=== PATIENT | female | born 1955 | race Caucasian/White ===

== ENCOUNTER → 2017-11-04 | Outpatient (CLI) | payer BC ==
[~2017-11-04] MED LIST: ALPR1 PO; ATOR40TA PO; Aspir-Low81 MG PO; BACID; BIEST; CALCAVITDA; CLIN300 PO; DIVA500EC; DOCU100 PO; Flagyl500 MG PO; Frova2.5 MG; LEVO750 PO; METF500; METO50ER PO; OXYACE5T PO; OXYC5 PO; PROGESTERONE; RANI150; Roxicodone5 MG PO; VIT D; VITAMIN D-32000 UNI1; VITAMIN D10000 UNIT PO; Zofran8 MG PO; [UNRECOGNIZED DRUG - OTHER]; [UNRECOGNIZED DRUG - REMARK]
[2017-11-04 15:20] LABS: BASOPHILS ABSOLUTE AUTO 0.03 K/mm3 (0.00-0.23); BASOPHILS PERCENT AUTO 1 % (0-2); EOSINOPHILS ABSOLUTE AUTO 0.09 K/mm3 (0.00-0.68); EOSINOPHILS PERCENT AUTO 1 % (0-6); Hematocrit 43.9 % (33.0-51.0); Hemoglobin 14.8 g/dL (11.5-16.0); IMMATURE GRAN ABSOLUTE AUTO 0.02 K/mm3 (0.00-0.10); IMMATURE GRAN PERCENT AUTO 0 % (0-1); LYMPHOCYTES ABSOLUTE AUTO 2.24 K/mm3 (0.84-5.20); LYMPHOCYTES PERCENT AUTO 36 % (21-46); MONOCYTES ABSOLUTE AUTO 0.47 K/mm3 (0.16-1.47); MONOCYTES PERCENT AUTO 8 % (4-13); Mean Corpuscular HGB Conc 33.7 g/dL (31.5-36.5); Mean Corpuscular Volume 95 fL (80-100); Mean Platelet Volume 10.8 fL (9.1-12.4); NEUTROPHILS ABSOLUTE AUTO 3.45 K/mm3 (1.96-9.15); NEUTROPHILS PERCENT AUTO 55 % (41-73); Platelet Count 225 K/mm3 (150-400); RDW Coefficient Variation 12.9 % (11.7-14.2); RDW Standard Deviation 44.1 fL (35.1-46.3); Red Blood Cell Count 4.62 M/mm3 (3.80-5.20)
[2017-11-04 15:29] LABS: Albumin, Blood 3.7 g/dL (3.4-5.0); Bilirubin, Total 0.6 mg/dL (0.1-1.0); Bun/Creatinine Ratio 18.6 (12.0-20.0); Calcium, Blood 9.1 mg/dL (8.5-10.1); Creatinine, Blood 0.97 mg/dL (0.40-1.00); Globulin, Blood 3.7 g/dL (2.2-4.0); Potassium, Blood 4.3 mmol/L (3.5-5.5); Total Protein, Blood 7.4 g/dL (6.4-8.2)
== END ==
LOC: LAB EV 15:15 → LAB SHORT 15:15
PROVIDERS: Physician Assistant
DX: R10.9 Unspecified abdominal pain (principal)
CPT/HCPCS: 80053; 83690; 85025

== ENCOUNTER → 2018-10-30 | Outpatient (CLI) | payer BC ==
[2018-10-31 15:06] LABS: HPV 16 Negative (Negative); HPV 18 Negative (Negative); HPV OTHER HR TYPES Negative (Negative)
== END | disposition home or self-care (01) ==
LOC: LAB SHORT 12:48 → LAB 12:48
PROVIDERS: Obstetrics & Gynecology Gynecology
DX: Z12.72 Encounter for screening for malignant neoplasm of vagina (principal)
CPT/HCPCS: 87624; G0123

== ENCOUNTER → 2019-02-01 | Outpatient (CLI) | payer BC ==
[~2019-02-01] MED LIST changes: +Esgic Tablet1 EACH PO; +HYOS0.375T PO; +Nitroglycerin0.4 MG SL
[2019-02-06 16:06] LABS: M-SPIKE, % Not Observed % (Not Observed); PROTEIN,TOTAL,URINE <4.0 mg/dL (Not Estab.)
== END | disposition home or self-care (01) ==
LOC: LAB SHORT 03:30 → OLS 03:30
PROVIDERS: Internal Medicine
DX: Z00.01 Encounter for general adult medical examination with abnormal findings (principal)
CPT/HCPCS: 81050; 84166

== ENCOUNTER 2019-03-25 11:40 | Day surgery (SDC) | payer BC ==
[~2019-03-25] VITALS: Ht 162.6 cm; Wt 101.0 kg
== END 2019-03-25 14:13 | disposition home or self-care (01) ==
LOC: ORSCSDS 11:40
PROVIDERS: Internal Medicine Gastroenterology
PROC: 0D757ZZ Dilation of Esophagus, Via Natural or Artificial Opening (ICD-10-PCS; principal; 2019-03-25 13:30)
PROC: 0DB58ZX Excision of Esophagus, Via Natural or Artificial Opening Endoscopic, Diagnostic (ICD-10-PCS; principal; 2019-03-25 13:30)
DX: R13.14 Dysphagia, pharyngoesophageal phase (principal); R07.9 Chest pain, unspecified; E66.9 Obesity, unspecified; Z68.36 Body mass index [BMI] 36.0-36.9, adult; Z79.82 Long term (current) use of aspirin; Z79.899 Other long term (current) drug therapy
CPT/HCPCS: 88305; J2704; J7120

== ENCOUNTER → 2019-04-02 | Outpatient (CLI) | payer BC | END | disposition home or self-care (01) | LOC: LAB SHORT 05:30 → OLS 05:30 → LAB FUT 03-26 17:35 | DX: R61 Generalized hyperhidrosis (principal) | CPT/HCPCS: 81050 ==

== ENCOUNTER → 2021-12-19 | Outpatient (CLI) | payer MEDICARE, OTHER ==
[2021-12-20 10:48] LABS: Stool Occult Bld Immuno 1 Negative (NEGATIVE)
== END | disposition home or self-care (01) ==
LOC: LAB 08:47 → LAB SHORT 08:47
PROVIDERS: Internal Medicine Gastroenterology
DX: Z12.11 Encounter for screening for malignant neoplasm of colon (principal)
CPT/HCPCS: 82274

== ENCOUNTER → 2021-12-22 | Outpatient (CLI) | payer MEDICARE, OTHER ==
[2021-12-22 13:56] LABS: Stool Occult Bld Immuno 1 Negative (NEGATIVE)
== END | disposition home or self-care (01) ==
LOC: LAB SHORT 09:15 → LAB 09:15 → LAB FUT 12-16 09:00
PROVIDERS: Internal Medicine Gastroenterology
DX: Z12.11 Encounter for screening for malignant neoplasm of colon (principal)
CPT/HCPCS: G0328

== ENCOUNTER → 2022-11-11 | Outpatient (CLI) | payer MEDICARE, OTHER ==
[2022-11-11 11:32] LABS: Protein, Urine Quantitative 14.7 mg/dL (0.0-11.9)
[2022-11-15 08:14] LABS: DOPAMINE, URINE 197 ug/L (Undefined)
[2022-11-15 14:09] LABS: 5-HIAA, URINE 5.4 mg/L (Undefined); CREATININE, URINE 74.6 mg/dL (Not Estab.)
[2022-11-19 00:07] LABS: METANEPHRINE, UR 64 ug/L (Undefined)
== END | disposition home or self-care (01) ==
LOC: LAB 09:34 → LAB SHORT 09:34
PROVIDERS: Internal Medicine
DX: L74.9 Eccrine sweat disorder, unspecified (principal)
CPT/HCPCS: 82384; 82570; 83497; 84156

== ENCOUNTER 2023-11-17 20:30 | Emergency (ER) | payer MEDICARE, OTHER ==
[~2023-11-17] VITALS: Ht 162.6 cm; Wt 108.9 kg
[~2023-11-17 20:30] MED LIST changes: +FLUTICASONE-SA1 EAC8 INH; +Nitroglycerin1 EAC3 TOP; +VITAMIN D310 MC4 PO; +Voltaren100 GM TOP
[2023-11-17 20:37] VITALS: BP 104/79
== END 2023-11-17 21:40 | disposition home or self-care (01) ==
LOC: ER 20:30
DX: S01.01XA Laceration without foreign body of scalp, initial encounter (principal); M25.561 Pain in right knee; W18.30XA Fall on same level, unspecified, initial encounter; Z88.8 Allergy status to other drugs, medicaments and biological substances; Z88.2 Allergy status to sulfonamides; Z88.5 Allergy status to narcotic agent; Z88.1 Allergy status to other antibiotic agents; Z91.040 Latex allergy status; Z79.899 Other long term (current) drug therapy; Z79.82 Long term (current) use of aspirin
CPT/HCPCS: 12002; 73562-RT; 99284-25

== ENCOUNTER 2023-11-28 07:07 | Day surgery (SDC) | payer MEDICARE, OTHER ==
[2023-11-28] VITALS (15 sets, daily range): BP systolic 97–133; BP diastolic 51–79
[~2023-11-28] VITALS: Ht 162.6 cm; Wt 97.7 kg
[~2023-11-28 07:07] MED LIST changes: +ASPI81CH PO; -Aspir-Low81 MG PO
[2023-11-28] MEDS ORDERED: Lactated Ringer's 1,000 ML IV SCH ×2 (08:45→09:50)
[2023-11-28] MEDS ORDERED: Acetaminophen 500 MG Tab PO SCH ×2 (08:45→16:00)
[2023-11-28] MEDS ORDERED: CeFAZolin Sodium 2,000 MG in NS 100 ML IV SCH ×2 (08:45→19:00)
[2023-11-28] MEDS ORDERED: Ropivacaine 0.5% HCl/Pf 123.125 MG,EPINEPHrine HCL 0.25 MG,Ketorolac Tromethamine 15 MG... INFIL SCH (08:45)
[2023-11-28] MEDS ORDERED: Chlorhexidine Mouth Care 15 ML UDC MT SCH (08:45)
[2023-11-28] MEDS ORDERED: Tranexamic Acid 100 ML IV SCH (08:46)
[2023-11-28] MEDS ORDERED: Mometasone/Formoterol MDI 100/5 mcg 13 GM INH SCH (09:35)
--- NOTE | 2023-11-28 09:36 | NUR ---
Ambulatory in Day Surgery. History, Chart, Medications and Allergies reviewed before start of procedure. Lungs clear T/O to Auscultation. Patient confirms NPO status and agrees with scheduled surgery. Pre-Op teaching done. Pt verbalizes understanding. PT BELONGINGS PLACED UNDERNEATH GURNEY FOR SAFEKEEPING. PT GLASSES TAKEN TO PACU FOR SAFEKEEPING.
[2023-11-28] MEDS ORDERED: Bisacodyl 10 MG Supp PR PRN (09:45)
[2023-11-28] MEDS ORDERED: Promethazine HCl 25 MG Tab PO PRN (09:45)
[2023-11-28] MEDS ORDERED: DiphenhydrAMINE HCL 25 MG Cap PO PRN (09:45)
[2023-11-28] MEDS ORDERED: Metoclopramide HCl 5MG / ML 2ML Vial IV PRN (09:50)
[2023-11-28] MEDS ORDERED: HYDROmorphone HCl/Pf 1MG SYR IV PRN (09:50)
[2023-11-28] MEDS ORDERED: Magnesium Hydroxide Conc 10 ML UDC PO PRN (09:50)
[2023-11-28] MEDS ORDERED: OxyCODONE HCL 5 MG TAB PO PRN ×2 (09:55)
[2023-11-28] MEDS ORDERED: Ondansetron HCl 2 MG / ML 2ML Vial IV PRN (09:55)
[2023-11-28] MEDS ORDERED: OxyCODONE HCL 10 MG TABCR PO SCH (10:05)
--- NOTE | 2023-11-28 10:06 | NUR ---
DR YEAGER AT BEDSIDE TO CONSULT PT FOR SURGERY. PER DR YEAGER, OKAY TO GIVE OXYCONTIN DESPITE PT ALLERGY TO HYDROCODONE. PT ALSO STATES SHE HAS TAKEN OXYCONTIN IN THE PAST AND HAS TOLERATED IT WELL.
[2023-11-28] MEDS ORDERED: Dexamethasone Sod Phos 10 MG/ML 1ML VIAL ONE (11:13)
[2023-11-28] MEDS ORDERED: Ondansetron HCl 2 MG / ML 2ML Vial ONE (11:13)
[2023-11-28] MEDS ORDERED: propofoL 20 ML IV ONE ×2 (11:13→11:51)
[2023-11-28] MEDS ORDERED: Midazolam HCl 1MG / ML 2ML Vial ONE (11:13)
[2023-11-28] MEDS ORDERED: ePHEDrine Sulfate 50 MG/ML 1ML Injection ONE (11:27)
--- NOTE | 2023-11-28 17:31 | NUR ---
SHIFT SUMMARY PT A&OX4, VSS/RA, MARLENE PO, VOIDING/BSC, AMB 1 PP MOD FWW/GB, UP TO CHAIR, PAIN MANAGED, IVF/ABX PER EMAR. WILL REPORT TO ONCOMING NOC KALYAN.
[2023-11-28] MEDS ORDERED: Ketorolac Tromethamine 15mg Vial IV SCH (18:00)
[2023-11-28] MEDS ORDERED: Docusate Sodium 100 MG Cap PO SCH (21:00)
[2023-11-29 05:00] VITALS: BP 117/66
--- NOTE | 2023-11-29 05:32 | NUR ---
SHIFT SUMMARY PT POD O RIGHT TOTAL KNEE. PT HAS RESTED T/O THE SHIFT. PT DID HAVE SOME NAUSEA WITH EMESIS AT THE BEGINNING OF THE SHIFT THAT WAS RELIEVED WITH MEDS PER EMAR. PT HAS NOT HAD ANY NAUSEA SINCE AND HAS BEEN ABLE TO TOLERATE PO INTAKE. PAIN CONTROLLED WITH MEDS PER EMAR. PT HAS BEEN UP AND AMBULATING TO THE BATHROOM, AND VOIDING. DRESSING C/D/I. POST OP VITALS STABLE. PLAN IS FOR DISCHARGE TODAY.
[2023-11-29 06:14] LABS: BASOPHILS ABSOLUTE AUTO 0.01 K/mm3 (0.00-0.23); BASOPHILS PERCENT AUTO 0 % (0-2); EOSINOPHILS PERCENT AUTO 0 % (0-6); Hematocrit 36.1 % (33.0-51.0); Hemoglobin 11.8 g/dL (11.5-16.0); IMMATURE GRAN ABSOLUTE AUTO 0.03 K/mm3 (0.00-0.10); IMMATURE GRAN PERCENT AUTO 0 % (0-1); LYMPHOCYTES ABSOLUTE AUTO 1.02 K/mm3 (0.84-5.20); LYMPHOCYTES PERCENT AUTO 10 % (21-46); MONOCYTES ABSOLUTE AUTO 0.61 K/mm3 (0.16-1.47); MONOCYTES PERCENT AUTO 6 % (4-13); Mean Corpuscular HGB 31.6 pg (26.0-34.0); Mean Corpuscular HGB Conc 32.7 g/dL (31.5-36.5); Mean Corpuscular Volume 97 fL (80-100); Mean Platelet Volume 11.4 fL (9.1-12.4); NEUTROPHILS ABSOLUTE AUTO 8.65 K/mm3 (1.96-9.15); NEUTROPHILS PERCENT AUTO 84 % (41-73); Platelet Count 174 K/mm3 (150-400); RDW Coefficient Variation 12.7 % (11.7-14.2); RDW Standard Deviation 45.1 fL (35.1-46.3); Red Blood Cell Count 3.74 M/mm3 (3.80-5.20); White Blood Cell Count 10.32 K/mm3 (4.00-11.30)
[2023-11-29 06:44] LABS: Bun/Creatinine Ratio 18.6 (12.0-20.0); Calcium, Blood 8.8 mg/dL (8.5-10.1); Creatinine, Blood 0.81 mg/dL (0.40-1.00); Potassium, Blood 4.6 mmol/L (3.5-5.5)
[2023-11-29 07:35] VITALS: BP 110/65
[2023-11-29] MEDS ORDERED: TraMADol HCl 50 MG Tab PO PRN (07:50)
[2023-11-29] MEDS ORDERED: Aspirin 81 MG Chew PO SCH (09:00)
[2023-11-29] MEDS ORDERED: Cholecalciferol 1000 Unit Tablet (=25MCG) PO SCH (09:00)
[2023-11-29] MEDS ORDERED: Atorvastatin 40 MG Tab PO SCH (09:00)
--- NOTE | 2023-11-29 12:03 | NUR ---
DISCHARGE POD1 R TKA AQUACEL CDI TEDS POLAR LISHA. A&OX4, MARLENE PO, VOIDING, AMB FWW, PAIN MANAGED, IV DC'D. DC INS PROVIDED. PT REP UNDERSTANDING THOSE INSTRUCTIONS INCLUDING ASA BID/TEDS, PAIN MGMT W.ULTRAM, SHORT FREQU AMB W/FWW, POLAR LISHA AND ELEVATE AT REST, OUTPT PT, DRESSING CHANGES. 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
== END 2023-11-29 11:00 | disposition home or self-care (01) ==
LOC: ORSCMMR 07:07 → ORD 10:00 → SURS 13:36 → ORSCMMR 11-29 11:00
PROVIDERS: Orthopaedic Surgery
PROC: 0SRC0JA Replacement of Right Knee Joint with Synthetic Substitute, Uncemented, Open Approach (ICD-10-PCS; principal; 2023-11-28 10:00)
DX: M17.11 Unilateral primary osteoarthritis, right knee (principal); I10 Essential (primary) hypertension; G47.33 Obstructive sleep apnea (adult) (pediatric); E11.9 Type 2 diabetes mellitus without complications; Z79.899 Other long term (current) drug therapy; E66.9 Obesity, unspecified; Z68.37 Body mass index [BMI] 37.0-37.9, adult; Z79.82 Long term (current) use of aspirin
CPT/HCPCS: 36415; 73560-RT; 80048; 82947; 85025; 94640; 94664; 94760; 97110; 97116; 97162; 97530; A9270; C1776; J0171; J0690; J0735; J1100; J1885; J2250; J2405; J2704; J2795; J7120

== ENCOUNTER 2024-01-23 05:36 | Day surgery (SDC) | payer MEDICARE, OTHER ==
[~2024-01-23] VITALS: Ht 162.6 cm; Wt 91.7 kg
[2024-01-23] MEDS ORDERED: Lactated Ringer's 1,000 ML IV SCH (06:10)
[2024-01-23 06:29] VITALS: BP 131/78
[2024-01-23] MEDS ORDERED: TRAM50 PO (06:35)
[2024-01-23] MEDS ORDERED: ACET500 PO (06:35)
[2024-01-23] MEDS ORDERED: propofoL 20 ML IV ONE (06:59)
[2024-01-23] MEDS ORDERED: FentaNYL Citrate 50 MCG/ML 2 ML Injection ONE (06:59)
--- NOTE | 2024-01-23 06:59 | NUR ---
Ambulatory in Day Surgery W/ CANE Patient confirms NPO status and agrees with scheduled surgery. Pre-Op teaching done. Pt verbalizes understanding. History, Chart, Medications and Allergies reviewed before start of procedure.Patient States Post-Procedure ride home has been arranged.
[2024-01-23] MEDS ORDERED: Ketorolac Tromethamine 30mg Vial ONE (07:24)
[2024-01-23] MEDS ORDERED: Dexamethasone Sod Phos 10 MG/ML 1ML VIAL ONE (07:24)
[2024-01-23] MEDS ORDERED: Ondansetron HCl 2 MG / ML 2ML Vial ONE (07:24)
[2024-01-23 07:45] VITALS: BP 96/66
[2024-01-23 07:55] VITALS: BP 101/69
[2024-01-23] MEDS ORDERED: Ondansetron HCl 2 MG / ML 2ML Vial IV ONE (08:05)
[2024-01-23] MEDS ORDERED: OxyCODONE 5 mg/Acetamin 325 mg TABLET PO PRN (08:05)
[2024-01-23] MEDS ORDERED: OxyCODONE 5 mg/Acetamin 325 mg TABLET PO ONE (08:05)
[2024-01-23 08:15] VITALS: BP 112/67
[2024-01-23 08:30] VITALS: BP 94/74
--- NOTE | 2024-01-23 08:41 | NUR ---
Discharge instructions reviewed with patient. Patient verbalizes understanding. Copy given to patient to take home.
[2024-01-23 08:42] VITALS: BP 102/62
--- NOTE | 2024-01-23 08:51 | NUR ---
Discharged via wheelchair to private car for ride home.
== END 2024-01-23 08:56 | disposition home or self-care (01) ==
LOC: ORSCMMR 05:36 → ORD 07:30 → ORSCMMR 07:30
PROVIDERS: Orthopaedic Surgery
PROC: 0SSCXZZ Reposition Right Knee Joint, External Approach (ICD-10-PCS; principal; 2024-01-23 07:30)
DX: M24.661 Ankylosis, right knee (principal); Z96.651 Presence of right artificial knee joint; G47.33 Obstructive sleep apnea (adult) (pediatric); I10 Essential (primary) hypertension; E11.9 Type 2 diabetes mellitus without complications; E66.9 Obesity, unspecified; Z68.34 Body mass index [BMI] 34.0-34.9, adult; Z79.82 Long term (current) use of aspirin; Z79.899 Other long term (current) drug therapy
CPT/HCPCS: 82947; A9270; J1100; J1885; J2405; J2704; J3010; J7120

== ENCOUNTER 2024-07-09 12:42 | Emergency (ER) | payer MEDICARE, OTHER ==
[~2024-07-09] VITALS: Ht 162.6 cm; Wt 93.0 kg
[~2024-07-09 12:42] MED LIST changes: +ACET500 PO; +TRAM50 PO
[2024-07-09 13:08] VITALS: BP 141/82
[2024-07-09 13:46] LABS: CORONAVIRUS COVID-19 AG Negative (NEGATIVE); INFLUENZA A AG Negative (NEGATIVE); INFLUENZA B AG Negative (NEGATIVE)
== END 2024-07-09 15:12 | disposition home or self-care (01) ==
LOC: ER 12:42
PROVIDERS: Student in an Organized Health Care Education/Training Program
DX: J06.9 Acute upper respiratory infection, unspecified (principal); Z88.8 Allergy status to other drugs, medicaments and biological substances; Z88.2 Allergy status to sulfonamides; Z88.1 Allergy status to other antibiotic agents; Z91.040 Latex allergy status; Z88.5 Allergy status to narcotic agent; Z91.018 Allergy to other foods; Z79.899 Other long term (current) drug therapy; Z79.82 Long term (current) use of aspirin
CPT/HCPCS: 71046; 87081; 87428-QW; 87430; 99283-25

== ENCOUNTER 2024-12-16 10:39 | Day surgery (SDC) | payer MEDICARE, OTHER ==
[~2024-12-16] VITALS: Ht 165.1 cm; Wt 98.2 kg
[~2024-12-16 10:39] MED LIST changes: +Lidocaine HCl 2% 10 ML SDA ONE
[2024-12-16] MEDS ORDERED: NS 100 ML IV ONE (10:53)
[2024-12-16] MEDS ORDERED: CeFAZolin Sodium 2,000 MG VIAL ONE (10:53)
[2024-12-16] MEDS ORDERED: NS 500 ML IV ONE (11:08)
[2024-12-16] MEDS ORDERED: NITROGLYCERIN 0.1 MG/HR (11:11)
[2024-12-16] MEDS ORDERED: METFORMIN HCL500 M2 PO (11:13)
[2024-12-16] MEDS ORDERED: META800 PO (11:13)
[2024-12-16] MEDS ORDERED: FentaNYL Citrate 50 MCG/ML 2 ML Injection ONE ×2 (11:36→13:12)
[2024-12-16] MEDS ORDERED: Midazolam HCl 1MG / ML 2ML Vial ONE (11:36)
[2024-12-16] MEDS ORDERED: Dexamethasone Sod Phos 10 MG/ML 1ML VIAL ONE (12:24)
[2024-12-16] MEDS ORDERED: Ondansetron HCl 2 MG / ML 2ML Vial ONE ×2 (12:24→13:05)
--- NOTE | 2024-12-16 13:00 | NUR ---
12/16/24 Madai Banda PT TO PACU A&O, DENIES PAIN. ROOM AIR DISTAL TO SURGICAL SITE, (+) CAP REFILL, WIGGLING FINGERS, DENIES NUMB/TINGLY
--- NOTE | 2024-12-16 13:40 | NUR ---
12/16/24 1340 NILO SUNSHINE PAIN 10/12. NAUSEA GETTING WORSE AGAIN. PT HAS ALREADY HAD 4MG ZOFRAN AND 50MCG FENTANYL IN PACU BY NURSE GINA
[2024-12-16 13:41] VITALS: BP 110/78
== END 2024-12-16 15:05 | disposition home or self-care (01) ==
LOC: ORSCSDS 10:39
PROVIDERS: Orthopaedic Surgery
PROC: 0RNL0ZZ Release Right Elbow Joint, Open Approach (ICD-10-PCS; principal; 2024-12-16 12:45)
DX: M77.11 Lateral epicondylitis, right elbow (principal); E78.5 Hyperlipidemia, unspecified; I25.10 Atherosclerotic heart disease of native coronary artery without angina pectoris; J45.909 Unspecified asthma, uncomplicated; G47.33 Obstructive sleep apnea (adult) (pediatric); E11.9 Type 2 diabetes mellitus without complications; K21.9 Gastro-esophageal reflux disease without esophagitis; E66.9 Obesity, unspecified; Z68.35 Body mass index [BMI] 35.0-35.9, adult; Z79.899 Other long term (current) drug therapy; Z79.84 Long term (current) use of oral hypoglycemic drugs; Z79.82 Long term (current) use of aspirin
CPT/HCPCS: 82947; C1713; J0690; J1100; J1790; J2003; J2250; J2405; J2704; J3010; J7120